=== PATIENT | female | born 1985 | race Caucasian/White ===

== ENCOUNTER → 2016-12-04 | Outpatient (CLI) | payer MEDICAID ==
[~2016-12-04] MED LIST: ACYC400T PO; DOCU100C37 PO; HYDR-3812 PO; IBUP-1773 PO; LABE200T3 PO; SERT25TA5 PO
--- NOTE | 2016-12-04 14:49 | Diagnostic Imaging Report ---
INDICATION: Gestational age determination. OB sonogram. FINDINGS: There is a single living intrauterine . Embryo crown-rump length is 2.3 cm which corresponds to a gestational age of 9 weeks. heartbeat was recorded at 180 beats per minute. There are no appreciable adnexal abnormalities. IMPRESSION: Single living intrauterine with estimated gestational age of 9 weeks +/-1 week. Dictated by: Dictated on workstation # [id number]
== END ==
LOC: RAD 13:30
PROVIDERS: ATTEND Nurse Practitioner Family
DX: Z36 Encounter for antenatal screening of mother (principal); Z3A.09 9 weeks gestation of pregnancy
CPT/HCPCS: 76801

== ENCOUNTER → 2017-02-17 | Outpatient (CLI) | payer MEDICAID ==
--- NOTE | 2017-02-17 17:45 | Diagnostic Imaging Report ---
OB ultrasound. INDICATION: survey. FINDINGS: The cervix is long and closed. The heart rate is 152 beats per minutes. The placenta is anterior. There is no placenta previa. anatomy demonstrates normal appearance of the stomach, no ventriculomegaly, normal cord insertion and two umbilical arteries. The four-chamber views and the spine are not well seen due to position. No hydronephrosis or cystic mass in the kidneys seen. The growth parameters are: Biparietal diameter: 20 weeks 0 day. Head circumference: 19 weeks 3 days. Abdominal circumference: 19 weeks 3 days. Femur length: 19 weeks 0 day. These average at: 19 weeks 4 days. This is consistent with gestational age based on the first trimester ultrasound, currently at 19 weeks and 5 days. IMPRESSION: Appropriate interval growth. Short-term follow-up within two weeks is recommended to reevaluate the four-chamber view and spine not well seen due to position. Dictated by: Dictated on workstation # [id number]
== END ==
LOC: RAD 09:46
PROVIDERS: ATTEND Family Medicine
DX: Z34.82 Encounter for supervision of other normal pregnancy, second trimester (principal)
CPT/HCPCS: 76805

== ENCOUNTER → 2017-03-15 | Outpatient (CLI) | payer MEDICAID ==
--- NOTE | 2017-03-15 18:09 | Diagnostic Imaging Report ---
INDICATION: Followup four-chamber view and spine. TECHNIQUE: Multiple real-time grayscale images were obtained over the gravid uterus. COMPARISON: 02/17/17 FINDINGS: heart rate is 138 beats per minute. The placenta is fundal. No placenta previa. Adequate amniotic fluid is seen. The spine and four-chamber view are better seen on the current exam with no definite abnormality. IMPRESSION: Completed survey. Dictated by: Dictated on workstation # [id number]
== END ==
LOC: RAD 13:22
PROVIDERS: ATTEND Obstetrics & Gynecology
DX: Z34.82 Encounter for supervision of other normal pregnancy, second trimester (principal); Z36 Encounter for antenatal screening of mother
CPT/HCPCS: 76816

== ENCOUNTER → 2017-04-16 | Outpatient (CLI) | payer MEDICAID ==
--- NOTE | 2017-04-17 10:42 | ECHOCARDIOGRAPHY REPORT ---
DATE OF SERVICE: 04/16/2017 TWO-DIMENSIONAL ECHOCARDIOGRAM REFERRING PHYSICIAN: Dr. Katie Boogie. MEASUREMENTS: LVID end diastolic 4.1, IVS thickness 0.8, LVPW thickness 1.1, left atrial diameter 2.4, ejection fraction 60%. FINDINGS: 1. Technical quality is good. 2. The left ventricle is normal in size with normal contractility, systolic function appeared to be normal, estimated ejection fraction 60%. 3. The left atrium is normal in size. No clots or thrombus were seen within the left atrium. 4. The right atrium and right ventricle are normal in size. No clots or thrombus were seen within the right side. 5. Mitral valve is normal in morphology with mild mitral regurgitation noted by color Doppler flow. No mitral valve prolapse. No mitral valve stenosis. 6. Aortic valve is trileaflet with normal opening and closing pattern. No significant aortic stenosis or regurgitation was seen. 7. Tricuspid valve is normal in morphology with trace tricuspid regurgitation noted by color Doppler flow. Doppler across the tricuspid valve estimated pulmonary artery pressure of 21+ right atrial pressure. 8. Pulmonic valve is functioning normally. 9. No pericardial effusion. CONCLUSIONS: 1. Normal left ventricular size and systolic function. Estimated ejection fraction 60%. 2. Mild mitral and tricuspid regurgitation. 3. Estimated pulmonary artery pressure of 30 mmHg. Job ID: [id number] DocumentID: [id number] Dictated Date: 04/17/2017 10:28:47 Administrative Support Coordinator Date: 04/17/2017 10:41:52 Dictated By: JACK RAMIREZ MD
== END ==
LOC: CARD 10:52
PROVIDERS: ATTEND Internal Medicine Cardiovascular Disease
DX: K21.9 Gastro-esophageal reflux disease without esophagitis (principal); F41.9 Anxiety disorder, unspecified; R55 Syncope and collapse; O14.90 Unspecified pre-eclampsia, unspecified trimester; O99.619 Diseases of the digestive system complicating pregnancy, unspecified trimester; O99.340 Other mental disorders complicating pregnancy, unspecified trimester; I08.1 Rheumatic disorders of both mitral and tricuspid valves; O99.419 Diseases of the circulatory system complicating pregnancy, unspecified trimester
CPT/HCPCS: 93306

== ENCOUNTER 2017-06-25 08:50 | Outpatient (CLI) | payer MEDICAID ==
[~2017-06-25] VITALS: Ht 152.4 cm; Wt 75.4 kg
[2017-06-25] MEDS ORDERED: CITA20TA12 PO (09:05)
[2017-06-25] MEDS ORDERED: PREN1TAB86 PO (09:05)
[2017-06-25 09:07] VITALS: BP 109/60
[2017-07-02] MEDS ORDERED: DOCU100C37 PO (11:55)
[2017-07-02] MEDS ORDERED: HYDR-3812 PO (11:55)
[2017-07-02] MEDS ORDERED: IBUP-1773 PO (11:55)
== END 2017-06-25 10:22 | disposition home or self-care (01) ==
LOC: PREOP 08:50
PROVIDERS: ATTEND Obstetrics & Gynecology
DX: Z01.818 Encounter for other preprocedural examination (principal); O34.219 Maternal care for unspecified type scar from previous cesarean delivery
CPT/HCPCS: 87081

== ENCOUNTER 2017-07-02 07:00 | Inpatient (IN) | payer MEDICAID ==
[~2017-07-02] VITALS: Ht 152.4 cm; Wt 75.4 kg
[2017-07-02] VITALS (7 sets, daily range): BP systolic 104–124; BP diastolic 60–78
[~2017-07-02 07:00] MED LIST changes: +CITA20TA12 PO; +PREN1TAB86 PO
--- OUTSIDE RECORDS SUMMARY | 2017-07-02 07:13 | XMS REPORT ---
Author MIKEL Chase Organization [employer] Address Unknown Phone Unavailable Care Team Providers Care Provider Education Specialist Name Role Phone MIKEL PUENTE CP Unavailable Allergies No Known Allergies Problems Problem Type Condition Code Onset Dates Condition Status Assessment Preeclampsia, third trimester O14.93 Active Assessment Encounter for supervision of normal first , third trimester Z34.03 Active Assessment 36 weeks gestation of Z3A.36 Active Problem Encounter for supervision of normal first , third trimester Z34.03 Active Problem Other viral diseases complicating , third trimester O98.513 Active Problem Herpesviral infection, unspecified B00.9 Active Assessment Other viral diseases complicating , third trimester O98.513 Active Assessment screening for streptococcus B Z36 Active Problem Depression affecting in third trimester, antepartum O99.343 Active Problem Herpes simplex type 2 (HSV-2) infection affecting , 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.63 Active Medications No Known Medications Procedures Procedure Coding System Code Date DETECT AGNT MULT, DNA, AMPLI CPT-4 41304 Sep 18, 2015 Office Visit, Est Pt., Level 3 CPT-4 07080 Sep 18, 2015 URINE-NO MICRO CPT-4 09576 Sep 18, 2015 Vital Signs Date/Time: Sep 18, 2015 Blood Pressure Diastolic 100 mmHg Blood Pressure Systolic 170 mmHg Weight 176.6 lbs Results Name Result Date Reference Range Unit Abnormality Flag CULTURE, GROUP B STREP (VAGINAL) Summary Purpose [employer]Works Submission
--- OUTSIDE RECORDS SUMMARY | 2017-07-02 07:13 | XMS REPORT ---
Author [facility] Address [address] [place] [address] Care Team Providers Care Fork Lift Technician Name Role Phone YEYO HARVEY Unavailable PROBLEMS Type Condition ICD9-CM Code [id number] Code Onset Dates Condition Status SNOMED Code Problem Herpesviral infection, unspecified B00.9 Active 67928108 Problem High risk medication use Z79.899 Active 368091683 Problem Depression, unspecified depression type F32.9 Active 75120567 Problem Normal in multigravida in second trimester Z34.82 Active 40931924 Problem Previous section Z98.891 Active 608940502 Problem Depression with anxiety F41.8 Active 092500047 Problem Emotional lability R45.86 Active 72338270 Problem Normal in multigravida in first trimester Z34.81 Active 39056949 Problem Adjustment disorder with depressed mood F43.21 Active 41834814 ALLERGIES Unknown Allergies SOCIAL HISTORY No smoking Hx information available PLAN OF CARE VITAL SIGNS MEDICATIONS Unknown Medications RESULTS Name Result Date Reference Range TEST, URINE (IN HOUSE) 2016-11-10 RESULTS positive Lot # [id number] Control + Exp date 02/23 PROCEDURES Procedure Date Ordered Related Diagnosis Body Site URINE TEST Nov 10, 2016 IMMUNIZATIONS No Known Immunizations
--- OUTSIDE RECORDS SUMMARY | 2017-07-02 07:13 | XMS REPORT ---
Author Author LEXI BOWENS Organization [employer] Address Unknown Phone Unavailable Care Team Providers Care Geospatial Analyst Name Role Phone LEXI BOWENS CP Unavailable Allergies, Adverse Reactions, Alerts Substance Reaction Event Type Sulfamethoxazole hives Drug Allergy Problems Problem Type Condition Code Onset Dates Condition Status Problem High risk medication use Z79.899 Active Problem Depression, unspecified depression type F32.9 Active Problem Emotional lability R45.86 Active Assessment High risk medication use Z79.899 Active Problem Herpesviral infection, unspecified B00.9 Active Assessment Emotional lability R45.86 Active Medications Medication Code System Code Instructions Start Date End Date Status Dosage Sertraline HCl [facility] [address]-05 100 MG Orally Once a day 1/2 pill daily x 1 week then 1 full pill daily Procedures Procedure Coding System Code Date ASSAY OF FREE THYROXINE CPT-4 25236 Jul 09, 2016 Office Visit, Est Pt., Level 3 CPT-4 60852 Jul 09, 2016 ASSAY THYROID STIM HORMONE CPT-4 41251 Jul 09, 2016 VENIPUNCT, ROUTINE* CPT-4 26581 Jul 09, 2016 Vital Signs Date/Time: Jul 09, 2016 Cardiac Monitoring Heart Rate 76 bpm Weight 168.9 lbs Height 60 in BMI 32.98 Index Blood Pressure Diastolic 70 mmHg Blood Pressure Systolic 112 mmHg Results No Known Results Summary Purpose [employer]ClinicalWorks Submission
--- OUTSIDE RECORDS SUMMARY | 2017-07-02 07:13 | XMS REPORT ---
Author MIKEL Chase [facility] e[employer] Address Unknown Phone Unavailable Care Team Providers Care Truer Pinion And Wheel Name Role Phone MIKEL PUENTE CP Unavailable Allergies, Adverse Reactions, Alerts Substance Reaction Event Type Sulfamethoxazole hives Drug Allergy Problems Problem Type Condition Code Onset Dates Condition Status Assessment Depression affecting in third trimester, antepartum O99.343 Active Assessment 31 weeks gestation of Z3A.31 Active Problem Other viral diseases complicating , third trimester O98.513 Active Problem Depression affecting in third trimester, antepartum O99.343 Active Problem Encounter for supervision of normal first , third trimester Z34.03 Active Assessment Encounter for immunization Z23 Active Assessment Other viral diseases complicating , third trimester O98.513 Active Problem Herpes simplex type 2 (HSV-2) infection affecting , 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.63 Active Assessment Encounter for supervision of normal first , third trimester Z34.03 Active Medications Medication Code System Code Instructions Start Date End Date Status Dosage Sertraline HCl [facility] [address]-46 25 MG Orally Once a day 1 tablet Acyclovir [facility] [address]-87 400 MG Orally Twice a day Aug 14, 2015 1 tablet Procedures Procedure Coding System Code Date FLUARIX QUAD (3 & UP)-GSK-2014 CPT-4 36166 Aug 14, 2015 TDAP (ADACEL) CPT-4 53596 Aug 14, 2015 Office Visit, Est Pt., Level 3 CPT-4 37887 Aug 14, 2015 IMMUNIZATION ADMIN, EACH ADD (please include units) CPT-4 50149 Aug 14, 2015 SINGLE IMMUNIZATION ADMIN CPT-4 04581 Aug 14, 2015 URINE-NO MICRO CPT-4 69011 Aug 14, 2015 Vital Signs Date/Time: Aug 14, 2015 Blood Pressure Diastolic 68 mmHg Blood Pressure Systolic 128 mmHg Weight 169.8 lbs Results Name Result Date Reference Range Unit Abnormality Flag UA OB DIP (IN HOUSE) Immunizations Vaccine Administration Date FLUARIX QUAD (3 & UP)-GSK-2015 Aug 14, 2015 TDAP (ADACEL) Aug 14, 2015 Summary Purpose eClinicalWorks Submission
--- OUTSIDE RECORDS SUMMARY | 2017-07-02 07:13 | XMS REPORT ---
Author LEXI Banuelos Organization [employer] Address Unknown Phone Unavailable Care Team Providers Care Cover Operator Name Role Phone LEXI BOWENS CP Unavailable Allergies No Known Allergies Problems Problem Type Condition Code Onset Dates Condition Status Problem Other viral diseases complicating , third trimester O98.513 Active Problem Depression affecting in third trimester, antepartum O99.343 Active Problem Encounter for supervision of normal first , third trimester Z34.03 Active Problem Herpes simplex type 2 (HSV-2) infection affecting , 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.63 Active Medications No Known Medications Results No Known Results Summary Purpose [employer]ClinicalWorks Submission
--- OUTSIDE RECORDS SUMMARY | 2017-07-02 07:13 | XMS REPORT ---
Author MIKEL Chase [facility] e[employer] Address Unknown Phone Unavailable Care Team Providers Care Respooler Name Role Phone MIKEL PUENTE CP Unavailable Allergies No Known Allergies Problems Problem Type Condition Code Onset Dates Condition Status Assessment Screening for diabetes mellitus V77.1 Active Assessment Screening, iron deficiency anemia V78.0 Active Problem Herpes simplex type 2 (HSV-2) infection affecting , 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.63 Active Assessment , normal first V22.0 Active Medications No Known Medications Procedures Procedure Coding System Code Date COMPLETE CBC W/AUTO DIFF WBC CPT-4 81596 Jul 25, 2015 GLUCOSE TEST CPT-4 11002 Jul 25, 2015 URINE-NO MICRO CPT-4 45244 Jul 25, 2015 VENIPUNCT, ROUTINE* CPT-4 57263 Jul 25, 2015 Office Visit, Est Pt., Level 3 CPT-4 26433 Jul 25, 2015 Vital Signs Date/Time: Jul 25, 2015 Temperature 97.6 F Weight 168.3 lbs Height 60 in BMI 32.869 Index Blood Pressure Diastolic 72 mmHg Blood Pressure Systolic 118 mmHg Cardiac Monitoring Heart Rate 84 bpm Results Name Result Date Reference Range Unit Abnormality Flag UA OB DIP (IN HOUSE) ----Glucose negative [id number] GLUCOSE ANEUDY 1 HOUR Summary Purpose eClinicalWorks Submission
--- OUTSIDE RECORDS SUMMARY | 2017-07-02 07:13 | XMS REPORT ---
Author Author [facility] [place] Address [address] [place] [address] Care Team Providers Care Control Clerk Repairs Name Role Phone LEXI BOWENS Unavailable PROBLEMS Type Condition ICD9-CM Code [id number] Code Onset Dates Condition Status SNOMED Code Assessment High risk medication use Z79.899 Jul, Active 373250318 Problem Adjustment disorder with depressed mood F43.21 Active 02839517 Problem Depression with anxiety F41.8 Active 909814844 Problem Depression, unspecified depression type F32.9 Active 58460193 Problem Herpesviral infection, unspecified B00.9 Active 14166961 Problem Emotional lability R45.86 Active 49689242 Problem High risk medication use Z79.899 Active 452089419 ALLERGIES Substance Reaction Event Type Date Status Sulfamethoxazole hives Drug Allergy Jul, Active SOCIAL HISTORY No smoking Hx information available PLAN OF CARE VITAL SIGNS Height 60 in 2016-08-06 Weight 167.4 lbs 2016-08-06 Heart Rate 73 bpm 2016-08-06 Respiratory Rate 16 2016-08-06 BMI 32.69 kg/m2 2016-08-06 Blood pressure systolic 116 mmHg 2016-08-06 Blood pressure diastolic 70 mmHg 2016-08-06 MEDICATIONS Medication Instructions Dosage Frequency Start Date End Date Duration Status Sertraline HCl 100 MG Orally Once a day 1 tablet 24h Active RESULTS No Results PROCEDURES Procedure Date Ordered Related Diagnosis Body Site Office Visit, Est Pt., Level 3 Aug 06, 2016 IMMUNIZATIONS No Known Immunizations
--- OUTSIDE RECORDS SUMMARY | 2017-07-02 07:13 | XMS REPORT ---
Author MIKEL Chase [employer] Address Unknown Phone Unavailable Care Team Providers Care Senior Regulatory Affairs Specialist Name Role Phone MIKEL PUENTE CP Unavailable Allergies, Adverse Reactions, Alerts Substance Reaction Event Type Sulfamethoxazole hives Drug Allergy Problems Problem Type Condition Code Onset Dates Condition Status Problem Herpesviral infection, unspecified B00.9 Active Assessment Routine follow-up Z39.2 Active Problem Depression, unspecified depression type F32.9 Active Assessment BCP ( control pills) initiation Z30.011 Active Medications Medication Code System Code Instructions Start Date End Date Status Dosage Sertraline HCl [facility] [address]-19 25 MG Orally Once a day 1 tablet Tri-Sprintec [facility] [address]-89 0.18/0.215/0.25 MG-35 MCG Orally Once a day Nov 27, 2015 1 tablet Procedures Procedure Coding System Code Date URINE TEST CPT-4 18934 Nov 27, 2015 Office Visit, Est Pt., Level 3 CPT-4 13658 Nov 27, 2015 Vital Signs Date/Time: Nov 27, 2015 Temperature 97.8 F Weight 157.0 lbs Height 60 in BMI 30.66 Index Blood Pressure Diastolic 72 mmHg Blood Pressure Systolic 128 mmHg Cardiac Monitoring Heart Rate 80 bpm Results Name Result Date Reference Range Unit Abnormality Flag TEST, URINE (IN HOUSE) ----RESULTS neg [id number] ----Lot # [id number] ----Control + [id number] ----Exp date [id number] Summary Purpose eClinicalWorks Submission
--- OUTSIDE RECORDS SUMMARY | 2017-07-02 07:13 | XMS REPORT ---
Author MIKEL Chase [employer] Address Unknown Phone Unavailable Care Team Providers Care Patient Svcs Mgr Name Role Phone MIKEL PUENTE CP Unavailable Allergies No Known Allergies Problems Problem Type Condition Code Onset Dates Condition Status Assessment Other viral diseases complicating , third trimester O98.513 Active Assessment Herpesviral infection, unspecified B00.9 Active Problem Encounter for supervision of normal first , third trimester Z34.03 Active Problem Other viral diseases complicating , third trimester O98.513 Active Problem Herpesviral infection, unspecified B00.9 Active Assessment Encounter for supervision of normal first , third trimester Z34.03 Active Assessment 34 weeks gestation of Z3A.34 Active Problem Depression affecting in third trimester, antepartum O99.343 Active Problem Herpes simplex type 2 (HSV-2) infection affecting , 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.63 Active Medications Medication Code System Code Instructions Start Date End Date Status Dosage Acyclovir [facility] [address]-68 400 MG Orally Twice a day Aug 14, 2015 1 tablet Sertraline HCl [facility] [address]-67 25 MG Orally Once a day 1 tablet Procedures Procedure Coding System Code Date Office Visit, Est Pt., Level 3 CPT-4 14186 Sep 04, 2015 URINE-NO MICRO CPT-4 14820 Sep 04, 2015 Vital Signs Date/Time: Sep 04, 2015 Blood Pressure Diastolic 84 mmHg Blood Pressure Systolic 132 mmHg Weight 176.4 lbs Results Name Result Date Reference Range Unit Abnormality Flag UA OB DIP (IN HOUSE) Summary Purpose eClinicalWorks Submission
--- OUTSIDE RECORDS SUMMARY | 2017-07-02 07:14 | XMS REPORT ---
Author Author LEXI BOWENS Organization [employer] Address Unknown Phone Unavailable Care Team Providers Care Bowling Floor Desk Clerk Name Role Phone LEXI BOWENS CP Unavailable Allergies No Known Allergies Problems Problem Type Condition Code Onset Dates Condition Status Problem Herpesviral infection, unspecified B00.9 Active Assessment Visit for TB skin test Z11.1 Active Problem Depression, unspecified depression type F32.9 Active Assessment Screening for tuberculosis Z11.1 Active Medications No Known Medications Procedures Procedure Coding System Code Date TB INTRADERMAL TEST CPT-4 68165 Jun 09, 2016 Results No Known Results Summary Purpose eClinicalWorks Submission
--- OUTSIDE RECORDS SUMMARY | 2017-07-02 07:14 | XMS REPORT ---
Author MIKEL Chase Organization [employer] Address Unknown Phone Unavailable Care Team Providers Care Hand Booked Folder And Stitcher Name Role Phone MIKEL PUENTE CP Unavailable Allergies No Known Allergies Problems No Known Problems Medications No Known Medications Results No Known Results Summary Purpose eClinicalWorks Submission
[2017-07-02] MEDS ORDERED: ceFAZolin 2 GM/50 ML NS 50 ML ONE (07:22)
[2017-07-02] MEDS ORDERED: LACTATED RINGERS 1,000 ML IV PRN (07:25)
[2017-07-02] MEDS ORDERED: METOCLOPRAMIDE INJ 10 MG/2 ML (REGLAN) IV ONE (07:30)
[2017-07-02] MEDS ORDERED: CITRIC ACID/SOB CIT (BICITRA) 30 ML UDC PO ONE (07:30)
[2017-07-02] MEDS ORDERED: FAMOTIDINE 20MG/2ML IV (PEPCID) IV ONE (07:30)
[2017-07-02] MEDS ORDERED: CATHETER FLUSH 10 ML SYR IV PRN (07:30)
[2017-07-02] MEDS: LACTATED RINGERS 1,000 ML IV PRN ×2 (07:50→10:17)
[2017-07-02 08:16] LABS: BASOPHILS % (AUTO) 0 % (0-10); EOSINOPHILS % (AUTO) 0 % (0-10); LYMPHOCYTES # (AUTO) 1.8 X 10^3 (1.0-4.0); LYMPHOCYTES % (AUTO) 23 % (12-44); MEAN CORPUSCULAR HEMOGLOBIN 28 PG (25-34); MEAN CORPUSCULAR HGB CONC 32 G/DL (32-36); MEAN CORPUSCULAR VOLUME 87 FL (80-99); MONOCYTES # (AUTO) 0.8 X 10^3 (0.0-1.0); MONOCYTES % (AUTO) 10 % (0-12); NEUTROPHILS # (AUTO) 5.3 X 10^3 (1.8-7.8); NEUTROPHILS % (AUTO) 67 % (42-75); PLATELET COUNT 232 10^3/uL (130-400); RED BLOOD COUNT 3.56 10^6/uL (4.35-5.85); RED CELL DISTRIBUTION WIDTH 14.2 % (10.0-14.5); WHITE BLOOD COUNT 7.8 10^3/uL (4.3-11.0)
[2017-07-02] MEDS ORDERED: ceFAZolin 2 GM/50 ML NS 50 ML IV ONE (08:30)
[2017-07-02] MEDS ORDERED: fentaNYL INJECTION 100 MCG/2 ML AMP ONE (09:24)
[2017-07-02] MEDS ORDERED: OXYTOCIN/NORMAL SALINE 500 ML IV SCH (09:41)
--- NOTE | 2017-07-02 09:41 | History & Physical-OB ---
OB - Chief Complaint & HPI Date/Time Date of Admission: Date of Admission: Jul 02, 2017 at 7:00 am Time Seen by Provider: 09:30 Chief Complaint/History OB-Reason for Admission/Chief: Section Hx : 2 Hx Para: 1 Expected Date of Delivery: Jul 09, 2017 Gestational Age in Weeks: 39 Indication for : desires repeat Admission Nurse Assessment Rev: Yes History of Labs A pos Antibody neg RI RPR NR HBsAg NR HIV NR GC neg GBS neg Allergies and Home Medications Allergies Coded Allergies: Sulfa (Sulfonamide Antibiotics) (Verified Allergy, Mild, HIVES, 06/25/17) Home Medications Citalopram Hydrobromide 20 Mg Tablet, 20 MG PO DAILY, (Reported) Vit W-Ca,Fe,FA(<1 mg) 1 Each Tablet, 1 EACH PO DAILY, (Reported) OB - History Hx of Present Care: Yes Ultrasounds: Normal mid trimester US Obstetrical Complications: None Medical Complications: None Obstetrical History Hx Termination: No Hx Multiple Gestation: No Hx Stillbirth: No Hx Complication: Yes (PRE-ECLAMPSIA THIS ) Hx Induced Hypertens: Yes (THIS ) Hx Maternal Gestational Diabet: No Delivery History Hx Dystocia: No Hx Large For Gestational Age I: No Hx Small for Gestational Age I: No Hx Section: No Hx Vaginal Delivery Post C-Sec: No Hx Blood Disorders: No Adverse Rxn to Tranfusion: No Patient Past Medical History PMH: genital HSV Depression Social History/Family History HIV/AIDS: No Recent Infectious Disease Expo: No Sexually Transmitted Disease: Yes (HERPES) Immunizations Hepatitis A: Yes Hepatitis B: Yes Tetanus Booster (TDap): Less than 5yrs Date of Influenza Vaccine: Aug 14, 2015 OB - Admission Exam Physical Exam Date Seen by Provider: Jul 02, 2017 Time Seen by Provider: 09:30 HEENT: NCAT Heart: Rhythm Normal Lungs: Clear Abdomen: Gravid Extremities: Normal Reflexes: Normal Heart Rate: 130's Accelerations: Accelerations Present Short Term Variability: Present Long-Term Variability: Average (6-25) Contractions on Admission: >10 Minutes Apart Intensity: Mild Labs Laboratory Tests Test 07/02/17 07:50 Range/Units White Blood Count 7.8 4.3-11.0 10^3/uL Red Blood Count 3.56 L 4.35-5.85 10^6/uL Hemoglobin 9.9 L 11.5-16.0 G/DL Hematocrit 31 L 35-52 % Mean Corpuscular Volume 87 80-99 FL Mean Corpuscular Hemoglobin 28 25-34 PG Mean Corpuscular Hemoglobin Concent 32 32-36 G/DL Red Cell Distribution Width 14.2 10.0-14.5 % Platelet Count 232 130-400 10^3/uL Mean Platelet Volume 12.0 H 7.4-10.4 FL Neutrophils (%) (Auto) 67 42-75 % Lymphocytes (%) (Auto) 23 12-44 % Monocytes (%) (Auto) 10 0-12 % Eosinophils (%) (Auto) 0 0-10 % Basophils (%) (Auto) 0 0-10 % Neutrophils # (Auto) 5.3 1.8-7.8 X 10^3 Lymphocytes # (Auto) 1.8 1.0-4.0 X 10^3 Monocytes # (Auto) 0.8 0.0-1.0 X 10^3 Eosinophils # (Auto) 0.0 0.0-0.3 10^3/uL Basophils # (Auto) 0.0 0.0-0.1 10^3/uL OB - Assessment/Plan/Diagnosis Assessment Assessment: section Plan Plan: Section Discharge Diagnosis Diagnosis: 31 yo @ 39 weeks Previous GBS neg BEATRIZ RUIZ DO Jul 02, 2017 9:41 am
[2017-07-02] MEDS ORDERED: TETANUS,DIPTH,PERTUSS P/F (BOOSTRIX) 0.5 ML VIAL IM SCH (09:45)
[2017-07-02] MEDS ORDERED: MEASLES,MUMPS,RUBELLA 1 EA INJ SC SCH (09:45)
[2017-07-02] MEDS ORDERED: HYDROmorphone (DILAUDID) 2 MG/ML VIAL IVP PRN (09:45)
[2017-07-02] MEDS ORDERED: ONDANSETRON 4 MG/2 ML (SDV) Z0FRAN IVP PRN (09:45)
[2017-07-02] MEDS ORDERED: DEXAMETHASONE 10 MG/ML (DECADRON) 1 ML VIAL ONE (10:07)
[2017-07-02] MEDS ORDERED: OXYTOCIN (PITOCIN) 10 UNIT/ML VIAL ONE (10:07)
[2017-07-02] MEDS ORDERED: PHENYLEPHRINE 100 MCG/ML 10 ML (ANESTHESIA) SYR ONE (10:07)
[2017-07-02] MEDS ORDERED: ONDANSETRON 4 MG/2 ML (SDV) Z0FRAN ONE (10:07)
[2017-07-02] MEDS ORDERED: LACTATED RINGERS 1,000 ML IV ONE (10:39)
[2017-07-02] MEDS: KETOROLAC 30 MG/ML VIAL IVP SCH ×3 (11:10→23:14)
[2017-07-02] MEDS ORDERED: D5 LR IV SOLUTION 1,000 ML IV ONE (11:30)
--- NOTE | 2017-07-02 11:50 | Progress Note-Post Operative ---
Post-Operative Progess Note Surgeon (s)/Combat Systems Operator (s) Surgeon BEATRIZ RUIZ DO Combat Systems Operator: Dipti Rdz EXERCISE SCIENTIST Pre-Operative Diagnosis Previous Post-Operative Diagnosis same Procedure & Operative Findings Date of Procedure 07/02/17 Procedure Performed/Findings 07/02/17 Procedure Performed/Findings RLTCS EBL: 600 Fluids: 2000mL UOP: 100 mL Findings: live female infant weight pending APGARS 8/9 OPERATIVE REPORT IN DETAIL: Once in the operating room, spinal anesthesia was found to be adequate. She was placed in the supine position with a leftward tilt, prepped and draped in normal sterile fashion. A timeout is performed and anesthesia is tested. I then proceed with making a Pfannenstiel skin incision to the previously existing scar using a knife and carried down to the underlying fascia using Bovie cautery. The fascial incision is extended laterally using Bovie cautery. The superior aspect of the fascial incision was then grasped with Anibal clamps, tented upward and dissected off the underlying rectus muscles. During this dissection there is severe scarring of the rectus muscle to the fascia, it is difficult to separate the two layers as the muscle layer is nearly obliterated. Inferior aspect of the fascial incision was then grasped with Anibal clamps, tented upward and dissected off the underlying rectus muscles as best as I can. The rectus muscles were then dissected down the midline using Feliz scissors, which exposed the peritoneum and allows me to enter bluntly. I then extend the peritoneal incision using blunt traction, placing Abe ring retractor in the peritoneal incision which offers excellent lateral sidewall retraction. I then identified the lower uterine segment which was found to be thinned out and make an incision into the vesicouterine peritoneum and bluntly dissected a bladder flap off of the lower uterine segment. I then proceed with my myotomy until membranes are visualized. At which point, I extend the uterine incision laterally and superiorly using bandage scissors. I then performed amniotomy using an Allis clamp. Clear fluid was noted. The infant is found in vertex presentation. With gentle fundal pressure, the infant's head is elevated and delivered through the incision and then the nares and oropharynx are then bulb suctioned. The anterior and posterior shoulders are delivered. The infant is then brought out into the operative field where the cord was doubly clamped and cut. Infant was handed off to the awaiting nurses in attendance. Cord blood was collected and 3-vessel cord with intact placenta is delivered spontaneously thereafter. IV Pitocin is initiated to facilitate uterine contraction. Uterine fundus became firmer with bimanual massage. The uterus was then exteriorized and cleared of all endometrial clots and debris. I then closed the uterine incision using 0 Vicryl suture in running locking fashion. A 2nd layer of imbricating 0 Monocryl was placed. Excellent hemostasis was noted after doing so. I then placed the uterus back within the pelvis and copiously irrigated the pelvis using normal saline. There was no active bleeding noted from any of my dissection planes. I placed Interceed antiadhesive over my lower transverse incision and proceeded with closing the peritoneum using 3-0 Vicryl in running fashion. The rectus muscle was reapproximated using 3-0 Vicryl sutures in interrupted fashion. The fascia was reapproximated using 0 Vicryl fashion. The subcutaneous tissues reapproximated using 3-0 plain in an interrupted fashion and the skin was reapproximated using 4-0 Monocryl in a running subcuticular. Dermabond was applied to the incision. A sterile dressing is adhesive white tape. The patient tolerated the procedure well and was sent to the recovery area in stable condition. Lap and sponge counts correct at the end of the procedure. Instrument counts were correct as well. Two grams of Ancef was given preoperatively for infection prophylaxis. Anesthesia Type spinal Estimated Blood Loss Estimated blood loss (mL): 600 Specimens/Packing Specimens Removed placenta PRAFULJESSIEBEATRIZ Jul 02, 2017 11:50 am
[2017-07-02] MEDS ORDERED: HYDR-3812 PO (11:55)
[2017-07-02] MEDS ORDERED: IBUP-1773 PO (11:55)
[2017-07-02] MEDS ORDERED: DOCU100C37 PO (11:55)
--- NOTE | 2017-07-02 11:55 | Discharge Inst-Women's Service ---
Discharge Inst-Women's Serv Depart Medication/Instructions New, Converted or Re-Newed RX: RX on Chart Consults/Follow Up Additional Follow Up: Yes Activity Activity: Activity as Tolerated Driving Instructions: No Driving for 1 Week NO SMOKING: NO SMOKING Nothing Inside Vagina: No Douching, No [place], No Tampons Diet Discharge Diet: No Restrictions Symptoms to Report to : Bleeding Excessive, Pain Increased, Fever Over 101 Degrees F, Vaginal Bleeding Increase, Questions/Concerns For Any Problems or Questions: Contact Your Physician Skin/Wound Care Infection Signs and Symptoms: Increased Redness, Foul Odor of Wound, Increased Drainage, Skin Itchy or Has a Rash, Increased Swelling, Temperature Above 101 F Operative Area Clean and Dry: Keep Incision Clean/Dry Stitches/[place]/Dermabond: Dermabond, Care of Stitches Bathing Instructions: BEATRIZ Roy DO Jul 02, 2017 11:55 am
[2017-07-02] MEDS: HYDROcodone/APAP 5 MG/325 MG (LORTAB) TAB PO PRN ×3 (12:20→21:22)
[2017-07-02] MEDS ORDERED: CATHETER FLUSH 10 ML SYR IV SCH (14:00)
[2017-07-02] MEDS: DOCUSATE SODIUM 100 MG (COLACE) CAP PO SCH (21:22)
[2017-07-03 01:55] VITALS: BP 107/69
[2017-07-03] MEDS: KETOROLAC 30 MG/ML VIAL IVP SCH (05:31)
[2017-07-03 06:20] VITALS: BP 102/62
[2017-07-03 06:42] LABS: BASOPHILS % (AUTO) 0 % (0-10); EOSINOPHILS % (AUTO) 0 % (0-10); LYMPHOCYTES # (AUTO) 2.9 X 10^3 (1.0-4.0); LYMPHOCYTES % (AUTO) 22 % (12-44); MEAN CORPUSCULAR HEMOGLOBIN 27 PG (25-34); MEAN CORPUSCULAR HGB CONC 31 G/DL (32-36); MEAN CORPUSCULAR VOLUME 88 FL (80-99); MEAN PLATELET VOLUME 11.5 FL (7.4-10.4); MONOCYTES # (AUTO) 1.1 X 10^3 (0.0-1.0); MONOCYTES % (AUTO) 9 % (0-12); NEUTROPHILS % (AUTO) 69 % (42-75); PLATELET COUNT 222 10^3/uL (130-400); RED BLOOD COUNT 3.23 10^6/uL (4.35-5.85); RED CELL DISTRIBUTION WIDTH 14.2 % (10.0-14.5)
[2017-07-03] MEDS: HYDROcodone/APAP 5 MG/325 MG (LORTAB) TAB PO PRN ×3 (07:57→18:40)
[2017-07-03] MEDS: DOCUSATE SODIUM 100 MG (COLACE) CAP PO SCH (07:58)
[2017-07-03 09:00] VITALS: BP 116/61
--- NOTE | 2017-07-03 09:04 | Progress Note-Standard ---
Standard Progress Note Progress Notes/Assess & Plan Date Seen by Provider: Jul 03, 2017 Time Seen by Provider: 09:03 Progress/Assessment & Plan this patient is without complaint. She is ambulating, voiding, tolerating fairly well, has good pain control. Vital Signs Date Time Temp Pulse Resp B/P (MAP) Pulse Ox O2 Delivery O2 Flow Rate FiO2 07/03/17 06:20 97.5 78 20 102/62 94 Room Air 07/03/17 01:55 98.1 72 20 107/69 97 Room Air 07/02/17 21:30 98.1 71 20 104/62 97 Room Air 07/02/17 17:00 98.6 71 20 118/78 07/02/17 13:50 98.2 71 20 124/75 07/02/17 12:07 97.5 60 20 104/69 07/02/17 09:30 95 20 115/62 vital signs are stable. Patient is afebrile. The abdomen is benign. Extreme show no clubbing cyanosis. There is no Homans sign. Assessment and plan patient is postoperative day number 1 status post repeat C -section doing well. Plan is for routine convalescence care today with discharge home tomorrow ISAAK LAWSON MD Jul 03, 2017 9:04 am
[2017-07-03] MEDS: IBUPROFEN 600 MG (MOTRIN) TAB PO SCH ×2 (12:02→18:40)
[2017-07-03 13:30] VITALS: BP 124/68
[2017-07-03 19:49] VITALS: BP 126/74
[2017-07-04] MEDS: IBUPROFEN 600 MG (MOTRIN) TAB PO SCH ×3 (00:08→12:15)
[2017-07-04] MEDS: HYDROcodone/APAP 5 MG/325 MG (LORTAB) TAB PO PRN ×2 (00:08→09:42)
[2017-07-04] MEDS: DOCUSATE SODIUM 100 MG (COLACE) CAP PO SCH ×2 (00:08→09:42)
[2017-07-04 02:05] VITALS: BP 109/70
--- NOTE | 2017-07-04 08:31 | Progress Note-Standard ---
Standard Progress Note Progress Notes/Assess & Plan Date Seen by Provider: Jul 04, 2017 Time Seen by Provider: 08:30 Progress/Assessment & Plan this patient is without complaint. She is ambulating, voiding, tolerating fairly well, has good pain control. Vital Signs Date Time Temp Pulse Resp B/P (MAP) Pulse Ox O2 Delivery O2 Flow Rate FiO2 07/03/17 06:20 97.5 78 20 102/62 94 Room Air 07/03/17 01:55 98.1 72 20 107/69 97 Room Air 07/02/17 21:30 98.1 71 20 104/62 97 Room Air 07/02/17 17:00 98.6 71 20 118/78 07/02/17 13:50 98.2 71 20 124/75 07/02/17 12:07 97.5 60 20 104/69 07/02/17 09:30 95 20 115/62 vital signs are stable. Patient is afebrile. The abdomen is benign. Extreme show no clubbing cyanosis. There is no Homans sign. Assessment and plan patient is postoperative day number 1 status post repeat C -section doing well. Plan is for routine convalescence care today with discharge home tomorrow July 04, 2017 Patient is without complaint. She is ambulating, voiding, tolerating fairly well, had good pain control, and is requesting discharge home Vital Signs Date Time Temp Pulse Resp B/P (MAP) Pulse Ox O2 Delivery O2 Flow Rate FiO2 07/04/17 02:05 98.2 80 20 109/70 97 Room Air 07/03/17 19:49 97.8 70 20 126/74 96 Room Air 07/03/17 13:30 99.4 86 20 124/68 93 Room Air 07/03/17 09:00 98.0 86 20 116/61 94 Room Air Vital signs are stable. Patient is afebrile. Abdomen is benign. Extremities show clubbing or cyanosis. There is no Homans sign. There is some pretibial pitting edema that is normal. Assessment and plan postoperative day number 2 status post repeat doing well. Plan is for discharge home with follow-up in clinic. Final Diagnosis repeat delivery ISAAK LAWSON MD Jul 04, 2017 8:31 am
[2017-07-04] MEDS ORDERED: FERR-84 PO (08:33)
[2017-07-04 09:44] VITALS: BP 117/69
--- NOTE | 2017-07-04 13:46 | Anesthesia-Regional Post-Op ---
Regional Patient Condition Mental Status: Alert, Oriented x3 Circulation: Same as Pre-Op Headache: Absent Sensation: Full Recovery Motor Block: Absent Post Op Complications Complications None Follow Up Care/Instructions Patient Instructions None needed. Anesthesia/Patient Condition Patient is doing well, no complaints, stable vital signs, no apparent adverse anesthesia problems. No complications reported per nursing. BERNADETTE DAVILA CRNA Jul 04, 2017 13:46
== END 2017-07-04 16:00 | disposition home or self-care (01) | DRG 766 ==
LOC: LDRP 07:00
PROVIDERS: ADMIT Obstetrics & Gynecology; ATTEND Obstetrics & Gynecology
PROC: 3E0P05Z Introduction of Adhesion Barrier into Female Reproductive, Open Approach (ICD-10-PCS; 2017-07-02)
PROC: 10D00Z1 Extraction of Products of Conception, Low, Open Approach (ICD-10-PCS; principal; 2017-07-02 09:41)
DX: O34.211 Maternal care for low transverse scar from previous cesarean delivery (principal); O99.343 Other mental disorders complicating pregnancy, third trimester; F32.9 Major depressive disorder, single episode, unspecified; O99.03 Anemia complicating the puerperium; D64.89 Other specified anemias; Z3A.39 39 weeks gestation of pregnancy; Z37.0 Single live birth
CPT/HCPCS: 36415; 85025; 86850; 86900; 86901; 94664